=== PATIENT | male | born 1945 | race Two or more races ===

== ENCOUNTER 2018-11-03 09:06 | Outpatient (CLI) | payer MEDICARE, OTHER ==
[2018-11-03] MEDS ORDERED: BARIUM SULFATE 98% 135 ML SUSP.RECON PO ONE ×2 (10:25→10:26)
== END 2018-11-03 23:59 | disposition home or self-care (01) ==
LOC: RAD 09:06
DX: R13.10 Dysphagia, unspecified (principal)
CPT/HCPCS: 74230-TC